=== PATIENT | male | born 1980 | race Hispanic/Latino ===

== ENCOUNTER 2024-05-14 14:09 | Emergency (ER) | payer SELFPAY ==
[2024-05-14] MEDS ORDERED: NA CHLORIDE 0.9% 2,000 ML ONE (14:13)
[2024-05-14] MEDS ORDERED: ONDANSETRON 4 MG/2 ML VIAL ONE (14:29)
[2024-05-14] MEDS ORDERED: NA CHLORIDE 0.9% 50 ML ONE (14:29)
[2024-05-14] MEDS ORDERED: METOCLOPRAMIDE 10 MG/2mL INJ ONE (14:29)
[2024-05-14 14:31] LABS: Absolute Basophils 0.1 K/uL (0-0.5); Absolute Eosinophils 0.2 K/uL (0-0.5); Absolute Lymphocytes (CBC) 4.6 K/uL (0.7-4.9); Absolute Neutrophil 5.6 K/uL (1.8-8.0); Eosinophils % 1.9 % (0-4.4); Hematocrit 46.4 % (39.6-49.0); Hemoglobin 15.6 g/dL (13.6-17.9); Lymphocytes % 39.9 % (15.3-44.8); MCH 29.5 pg (27.0-35.0); MCHC 33.5 g/dL (32.0-36.0); Monocytes % 8.8 % (3.3-12.3); Neutrophils % 48.4 % (41.7-73.7); Platelets 306 thou/uL (152-406); RBC Red Blood Cell Count 5.27 M/uL (4.33-5.43); Red Cell Distribution Width 13.1 % (12.1-15.2)
[2024-05-14 14:42] LABS: Protime INR 1.07
[2024-05-14 14:58] LABS: ALT/SGPT 27 U/L (16-61); AST/SGOT 14 U/L (15-37); Albumin 3.8 g/dL (3.4-5.0); Albumin/Globulin Ratio 0.9 (1.1-1.8); Alkaline Phosphatase 125 U/L (45-117); Anion Gap 12.9 mEq/L (5.0-15.0); BUN Blood Urea Nitrogen 18 mg/dL (7-18); Bicarbonate 20 mEq/L (21-32); Bilirubin Direct 0.2 mg/dL (0-0.2); Bilirubin Indirect, Calculated 0.5 mg/dL (0.2-0.8); Bilirubin Total 0.7 mg/dL (0.2-1.0); Globulin 4.4 g/dL (2.3-3.5); Glomerular Filtration Rate 54 ml/min (=/>90); Glucose Level 127 mg/dL (74-106); Potassium 2.9 mEq/L (3.5-5.1); Protein, Total 8.2 g/dL (6.4-8.2); Sodium Level 136 mEq/L (136-145)
[2024-05-14] MEDS ORDERED: POTASSIUM 25 MEQ EFFERV TAB ONE (16:02)
[2024-05-14 16:28] LABS: Specific Gravity 1.029 (1.005-1.030); Sqamous Epithelial <5 /HPF (None Seen); Urine Bacteria <20 /HPF (<20); Urine Bilirubin NEGATIVE (Negative); Urine Blood Trace (Negative); Urine Clarity Extremely Turbid (Clear); Urine Color Yellow (Yellow); Urine Crystals Unidentified Few /HPF (None Seen); Urine Culture Reflex Order NOT NEEDED; Urine Glucose NEGATIVE (Negative); Urine Ketones NEGATIVE (Negative); Urine Microscopic Reflex YN ORDER UMIC; Urine Mucus 4+ /HPF (None Seen); Urine Nitrite NEGATIVE (Negative); Urine Protein 2+ (Negative); Urine Urobilinogen 1+ (Normal); Urine WBC Clump Rare /HPF (None Seen); Urine Yeast (Budding) Occasional /HPF (None Seen); Urine pH 5.5 (5.0-7.0)
[2024-05-14 16:36] LABS: Barbiturates NEGATIVE (NEGATIVE); Benzodiazepines NEGATIVE (NEGATIVE); Cocaine NEGATIVE (NEGATIVE); METHAMPHETAM NEGATIVE (NEGATIVE); Methadone NEGATIVE (NEGATIVE); Opiates NEGATIVE (NEGATIVE); Phencyclidine NEGATIVE (NEGATIVE); THC Cannibis NEGATIVE (NEGATIVE)
--- NOTE | 2024-05-14 18:24 | ER ---
Nurse's Notes [facility] Name: Agus Medina Age: 44 yrs Sex: Male : 1980 Arrival Date: 05/14/2024 Time: 14:09 Bed 17 Private MD: Diagnosis: Syncope Near-from tree trimming - 5 ft Presentation: 05/14 14:21 Chief complaint: PRESENTING TO THE ER FOR SYNCOPE EPISODE. PT ALSO HAD SYNCOPAL EPISODE cm10 IN ROUTE. PT HYPOTENSIVE UPON ARRIVAL AND COOL AND CLAMMY. PT AWAKES WHEN SPOKEN TO. Coronavirus screen: Client denies travel out of the [place] in the last 14 days. Ebola Screen: Patient denies travel to an Ebola-affected area in the 21 days before illness onset. Initial Sepsis Screen: Does the patient meet any 2 criteria? Mean Arterial Pressure (MAP) < 65. Does the patient have a suspected source of infection? No. Patient's initial sepsis screen is negative. Risk Assessment: Do you want to hurt yourself or someone else? Patient reports no desire to harm self or others. Onset of symptoms was May 14, 2024. 14:21 Method Of Arrival: Wheelchair cm10 14:21 Acuity: [place] 2 cm10 Historical: - Allergies: 14:22 No Known Allergies; cm10 - Home Meds: 14:22 Hydroxyzine Oral [Active]; Zoloft Oral [Active]; cm10 - PMHx: 14:22 Depressive disorder; cm10 - Immunization history:: Adult Immunizations up to date. - Infectious Disease History:: Denies. - Social history:: Smoking status: Patient denies any tobacco usage or history of. Screenin:32 [facility] ED Fall Risk Assessment (Adult) History of falling in the last 3 months, db including since admission Yes- single mechanical fall (1 pt) Confusion or Disorientation No (0 pts) Intoxicated or Sedated No (0 pts) Impaired Gait No (0 pts) Mobility Assist Device Used No (0 pt) Altered Elimination No (0 pt) Score/Fall Risk Level 0 - 2 = Low Risk Oriented to surroundings, Maintained a safe environment. Abuse screen: Denies threats or abuse. Denies injuries from another. Nutritional screening: No deficits noted. Tuberculosis screening: No symptoms or risk factors identified. Assessment: 14:15 Reassessment: Patient appears in no apparent distress at this time. Patient and/or db family updated on plan of care and expected duration. Pain level reassessed. Patient is alert, oriented x 3, equal unlabored respirations, skin warm/dry/pink. General: Appears in no apparent distress. comfortable, Behavior is calm, cooperative. Pain: Denies pain. Neuro: Level of Consciousness is awake, obeys commands, Oriented to person, place, time, situation. Cardiovascular: Rhythm is sinus rhythm. Respiratory: Airway is patent Respiratory effort is even, unlabored, Respiratory pattern is regular, symmetrical. 15:15 Reassessment: NOTIFIED DR. FORBES PATIENT BP 90/55. PT STATES FEELS BETTER. db 16:11 Reassessment: Patient appears in no apparent distress at this time. Patient and/or db family updated on plan of care and expected duration. Pain level reassessed. Patient is alert, oriented x 3, equal unlabored respirations, skin warm/dry/pink. PATIENT ASSISTED WITH URINAL. URINE SPECIMEN COLLECTED. 17:27 Reassessment: Patient appears in no apparent distress at this time. Patient and/or db family updated on plan of care and expected duration. Pain level reassessed. Patient is alert, oriented x 3, equal unlabored respirations, skin warm/dry/pink. 18:03 Reassessment: PATIENT AMBULATORY IN THE HALLWAY PER PROVIDER. GATE STEADY IN NAD. db DENIES DIZZINESS. 18:52 Reassessment: Patient appears in no apparent distress at this time. Patient and/or db family updated on plan of care and expected duration. Pain level reassessed. Patient is alert, oriented x 3, equal unlabored respirations, skin warm/dry/pink. Patient states feeling better. Patient states symptoms have improved. Vital Signs: 14:15 BP 104 / 77; Pulse 70; Resp 16; Pulse Ox 97% on R/A; db 14:21 BP 80 / 62; Pulse 77; Resp 18; Temp 98.6(O); Pulse Ox 97% on R/A; Weight 111.13 kg; cm10 Height 5 ft. 9 in. ; Pain 0/10; 14:45 BP 91 / 60; Pulse 75; Resp 16; Pulse Ox 95% on R/A; db 15:15 BP 90 / 55; Pulse 79; Resp 18; Pulse Ox 92% on R/A; db 15:45 BP 90 / 62; Pulse 68; Resp 16; Pulse Ox 95% ; db 16:15 BP 95 / 66; Pulse 71; Resp 18; Pulse Ox 96% on R/A; db 17:00 BP 98 / 66; Pulse 69; Resp 19; Pulse Ox 95% on R/A; db 17:30 BP 9 / 49; Pulse 68; Resp 16; Pulse Ox 94% ; db 18:00 BP 98 / 64; Pulse 66; Resp 18; Pulse Ox 95% on R/A; db 18:30 BP 100 / 68; Pulse 67; Resp 18; Pulse Ox 95% on R/A; db 14:21 Body Mass Index 36.18 (111.13 kg, 175.26 cm) cm10 14:21 Pain Scale: Adult cm10 Breezy Coma Score: 18:08 Eye Response: spontaneous(4). Motor Response: obeys commands(6). Verbal Response: bo1 oriented(5). Total: 15. ED Course: 14:12 Patient arrived in ED. im 14:19 Kassandra Vega, RN is Primary Nurse. db 14:20 EKG done, by ED staff. tm3 14:22 Triage completed. cm10 14:24 Arm band placed on right wrist. Patient placed in an exam room, on a stretcher, on cm10 security monitor, on pulse oximetry. EKG completed in triage. Results shown to MD. 14:25 Initial lab(s) drawn, by me, held in ED. Inserted saline lock: 18 gauge in right cm10 antecubital area, using aseptic technique. Blood collected. Flushed with 10 mL NS. 14:27 Darius Forbes MD is Attending Physician. bo1 16:24 Urine collected: clean catch specimen. db 18:52 No provider procedures requiring assistance completed. IV discontinued, intact, db bleeding controlled, No redness/swelling at site. 18:52 Patient has correct armband on for positive identification. Bed in low position. Call db light in reach. Side rails up X 1. Provided Education on: DISCHARGE AND FOLLOWUP. Client placed on continuous cardiac and pulse oximetry monitoring. NIBP monitoring applied. security monitor on. Pulse ox on. NIBP on. Warm blanket given. Pillow given. Administered Medications: 14:26 Drug: NS 0.9% IV 1000 ml IV at 1000 ml once; to be given as a bolus over 60 minutes cm10 Route: IV; Rate: 1000 ml; Site: right antecubital; 18:54 Follow up: Response: No adverse reaction; IV Status: Completed infusion; IV Intake: db 1000ml 14:26 Drug: NS 0.9% IV 1000 ml IV at 1 bolus Per protocol; to be given as a bolus over 60 cm10 minutes Route: IV; Rate: 1 bolus; Site: right antecubital; 15:34 Follow up: Response: No adverse reaction; IV Status: Completed infusion; IV Intake: db 1000ml 14:30 Drug: Ondansetron IVP 8 mg IVP once; over 2 minutes Route: IVP; Site: right antecubital;db 15:34 Follow up: Response: No adverse reaction db 14:30 Drug: metoCLOPramide IVP 20 mg IVP once; over 15 mins Route: IVP; Site: right db antecubital; 15:34 Follow up: Response: No adverse reaction db 15:58 Drug: Potassium Chloride PO Liquid 40 mEq PO once Route: PO; db 18:54 Follow up: Response: No adverse reaction db Medication: 18:52 VIS not applicable for this client. db Point of Care Testing: Blood Glucose: 14:24 Blood Glucose: 134 mg/dL; cm10 Ranges: Intake: 15:34 IV: 1000ml; Total: 1000ml. db 18:54 IV: 1000ml; Total: 2000ml. db Outcome: 18:24 Discharge ordered by bo1 18:52 Discharged to home ambulatory, with family, db 18:52 Condition: stable 18:52 Discharge instructions given to patient, family, Instructed on discharge instructions, follow up and referral plans. 18:55 Patient left the ED. db Signatures: Cabrera Holbrook tm3 Kassandra Vega RN RN db Cathy Breaux Clarissa, RN RN cm10 Darius Forbes MD MD bo1 Corrections: (The following items were deleted from the chart) 18:04 18:03 Reassessment: PATIENT AMBULATORY IN THE HALLWAY PER PROVIDER. GATE STEADY IN NAD. db db
--- NOTE | 2024-05-14 18:24 | EDPHYS ---
Physician Documentation [facility] Name: Agus Medina Age: 44 yrs Sex: Male : 1980 Arrival Date: 05/14/2024 Time: 14:09 Bed 17 Private MD: ED Physician Darius Forbes HPI: 05/14 18:04 This 44 yrs old Male presents to ER via Wheelchair with complaints of Syncope. bo1 18:04 The patient has experienced syncope, Pt fainted about 5 ft off the ground while bo1 trimming a tree with family. Onset: The symptoms/episode began/occurred suddenly, just prior to arrival. Duration: This was a single episode, that is still ongoing, Pt is feeling weak, hyperventilating and feeling cold and clammy. Context: the episode(s) was witnessed, by family. Associated injury: The patient did not suffer any apparent associated injury. Associated signs and symptoms: Pertinent positives: diaphoresis, dizziness. Current symptoms: Weakness and sweating. No prior Hx or event. No LOC. 18:08 Recent increase in his Zoloft dosage. bo1 Historical: - Allergies: 14:22 No Known Allergies; cm10 - Home Meds: 14:22 Hydroxyzine Oral [Active]; Zoloft Oral [Active]; cm10 - PMHx: 14:22 Depressive disorder; cm10 - Immunization history:: Adult Immunizations up to date. - Infectious Disease History:: Denies. - Social history:: Smoking status: Patient denies any tobacco usage or history of. ROS: 18:06 Constitutional: Negative for fever, chills, and weight loss bo1 18:06 Constitutional: Positive for Weakness - generalized with hyperventilation, 18:06 Eyes: Negative for acute changes, 18:06 Cardiovascular: Negative for chest pain, 18:06 Respiratory: Positive for Breathing fast, 18:06 Abdomen/GI: Positive for nausea, 18:06 MS/extremity: Negative for acute changes, pain, swelling, 18:06 Skin: Positive for diaphoresis, "cold and clammy", 18:06 Neuro: Positive for dizziness, Negative for altered mental status, 18:06 All other systems are negative, Exam: 18:08 Constitutional: This is a well developed, well nourished patient who is awake, alert, bo1 and in acute distress. 18:08 Constitutional: The patient appears alert, awake, diaphoretic, uncomfortable, Cold to the touch 18:08 Head/face: Exam is negative for acute changes, 18:08 Eyes: Exam is negative for acute changes, 18:08 Neck: Exam negative for External neck: is normal, no acute changes, 18:08 Chest/axilla: Exam negative for acute changes, 18:08 Cardiovascular: Rate: normal, Rhythm: regular, Pulses: no pulse deficits are appreciated, 18:08 ECG was reviewed by the Attending Physician. 18:08 Respiratory: Exam negative for acute changes, mild respiratory distress is noted, Respirations: shallow respirations, tachypnea, 18:08 Abdomen/GI: Inspection: abdomen appears normal, obese Bowel sounds: normal, Palpation: soft, nontender, 18:08 Musculoskeletal/extremity: Extremities: all appear grossly normal, with no appreciated pain with palpation, 18:08 Skin: no rash present. Diaphoretic and cool. Vital Signs: 14:15 BP 104 / 77; Pulse 70; Resp 16; Pulse Ox 97% on R/A; db 14:21 BP 80 / 62; Pulse 77; Resp 18; Temp 98.6(O); Pulse Ox 97% on R/A; Weight 111.13 kg; cm10 Height 5 ft. 9 in. ; Pain 0/10; 14:45 BP 91 / 60; Pulse 75; Resp 16; Pulse Ox 95% on R/A; db 15:15 BP 90 / 55; Pulse 79; Resp 18; Pulse Ox 92% on R/A; db 15:45 BP 90 / 62; Pulse 68; Resp 16; Pulse Ox 95% ; db 16:15 BP 95 / 66; Pulse 71; Resp 18; Pulse Ox 96% on R/A; db 17:00 BP 98 / 66; Pulse 69; Resp 19; Pulse Ox 95% on R/A; db 17:30 BP 9 / 49; Pulse 68; Resp 16; Pulse Ox 94% ; db 18:00 BP 98 / 64; Pulse 66; Resp 18; Pulse Ox 95% on R/A; db 18:30 BP 100 / 68; Pulse 67; Resp 18; Pulse Ox 95% on R/A; db 14:21 Body Mass Index 36.18 (111.13 kg, 175.26 cm) cm10 14:21 Pain Scale: Adult cm10 Breezy Coma Score: 18:08 Eye Response: spontaneous(4). Motor Response: obeys commands(6). Verbal Response: bo1 oriented(5). Total: 15. MDM: 14:28 Medical Screening Exam initiated bo1 18:17 Differential Diagnosis: emotional response, idiopathic syncope, vasovagal episode. Data bo1 reviewed: vital signs, lab test result(s), EKG. Medication response: Reglan and IVF. Response to treatment: the patient's symptoms have markedly improved after treatment, the patient is now symptom free, Post fluids pt is able to walk and ambulate w/o dizziness, now much improved. ED course: Pt is improved post care and treatment in the ER. Pt did come by POV and family here. 05/14 14:19 Order name: Acetaminophen; Complete Time: 15:27 db 05/14 14:19 Order name: Basic Metabolic Panel; Complete Time: 15:27 db 05/14 14:19 Order name: CBC with Diff; Complete Time: 15:27 db 05/14 14:19 Order name: ETOH Level; Complete Time: 15:27 db 05/14 14:19 Order name: Hepatic Function; Complete Time: 15:27 db 05/14 14:19 Order name: PT-INR; Complete Time: 15:27 db 05/14 14:19 Order name: Ptt, Activated; Complete Time: 15:27 db 05/14 14:19 Order name: Salicylate; Complete Time: 15:27 db 15 14:19 Order name: Urine Drug Screen; Complete Time: 16:39 db 05/14 14:35 Order name: Glucose, Ancillary Testing; Complete Time: 15:27 EDMS 05/14 14:37 Order name: Glucose, Ancillary Testing EDMS 05/14 16:13 Order name: Urinalysis w/ reflexes; Complete Time: 16:39 db 05/14 14:19 Order name: EKG - Nurse/Tech; Complete Time: 14:19 db 05/14 14:19 Order name: IV Saline Lock; Complete Time: 14:19 db 05/14 14:19 Order name: Labs collected and sent; Complete Time: 14:49 db 05/14 14:19 Order name: Suicide Screening ([place]); Complete Time: 14:19 db EC:08 Rate is 74 beats/min. Rhythm is regular. QRS [place] is Normal. [place] interval is normal. QRS bo1 interval is normal. QT interval is normal. No Q waves. T waves are Normal. No ST changes noted. Clinical impression: Normal ECG. Interpreted by me. Reviewed by me. Administered Medications: 14:26 Drug: NS 0.9% IV 1000 ml IV at 1000 ml once; to be given as a bolus over 60 minutes cm10 Route: IV; Rate: 1000 ml; Site: right antecubital; 18:54 Follow up: Response: No adverse reaction; IV Status: Completed infusion; IV Intake: db 1000ml 14:26 Drug: NS 0.9% IV 1000 ml IV at 1 bolus Per protocol; to be given as a bolus over 60 cm10 minutes Route: IV; Rate: 1 bolus; Site: right antecubital; 15:34 Follow up: Response: No adverse reaction; IV Status: Completed infusion; IV Intake: db 1000ml 14:30 Drug: Ondansetron IVP 8 mg IVP once; over 2 minutes Route: IVP; Site: right antecubital;db 15:34 Follow up: Response: No adverse reaction db 14:30 Drug: metoCLOPramide IVP 20 mg IVP once; over 15 mins Route: IVP; Site: right db antecubital; 15:34 Follow up: Response: No adverse reaction db 15:58 Drug: Potassium Chloride PO Liquid 40 mEq PO once Route: PO; db 18:54 Follow up: Response: No adverse reaction db Point of Care Testing: Blood Glucose: 14:24 Blood Glucose: 134 mg/dL; cm10 Ranges: Critical Glucose Levels:Adult <50 mg/dl or >400 mg/dl <40 mg/dl or >180 mg/dl Disposition Summary: 05/14/24 18:24 Discharge Ordered Notes: Location: Home bo1 Problem: new bo1 Symptoms: have improved bo1 Condition: Stable bo1 Diagnosis - Syncope Near - from tree trimming - 5 ft bo1 Followup: bo1 - With: Private Physician - When: Upon discharge from the Emergency Department - Reason: Recheck today's complaints, Continuance of care Discharge Instructions: - Discharge Summary Sheet bo1 - Syncope bo1 Forms: - Medication Reconciliation Form bo1 - Antibiotic Education bo1 - Prescription Opioid Use bo1 - Patient Portal Instructions bo1 - Leadership Thank You Letter bo1 Signatures: Dispatcher [employer] EDMS Kassandra Vega, RN RN db Monik Thorne RN RN cm10 Oei, MD SHITAL Mccoy bo1 Corrections: (The following items were deleted from the chart) 14:20 14:19 ACETAMINOPHEN+C.LAB.BRZ ordered. EDMS EDMS 14:20 14:19 BASIC METABOLIC PANEL+C.LAB.BRZ ordered. EDMS EDMS 14:20 14:19 CBC+H.LAB.BRZ ordered. EDMS EDMS 14:20 14:20 ETHANOL+C.LAB.BRZ ordered. EDMS EDMS 14:20 14:20 HEPATIC FUNCTION+C.LAB.BRZ ordered. EDMS EDMS 14:20 14:20 PROTIME (+INR)+COAG.LAB.BRZ ordered. EDMS EDMS 14:20 14:20 PTT, ACTIVATED+COAG.LAB.BRZ ordered. EDMS EDMS 14:20 14:20 SALICYLATE+C.LAB.BRZ ordered. EDMS EDMS 14:20 14:20 URINE DRUG SCREEN+UC.LAB.BRZ ordered. EDMS EDMS
[2024-05-14 20:14] VITALS: TEMP 98.6
[2024-05-14 20:22] VITALS: O2SAT 95
[2024-05-14 20:23] VITALS: BP 100/68
--- NOTE | 2024-05-16 12:03 | EKG ---
Test Date: 2024-05-14 Test Time: 14:17:47 Instructional Technology Coach: TM MEASUREMENT RESULTS: Intervals: Rate: 74 ME: 146 QRSD: 100 QT: 378 QTc: 419 [place]: P: 55 ME: 146 QRS: 66 T: 72 INTERPRETIVE STATEMENTS: Normal sinus rhythm Normal ECG No previous ECG available for comparison Electronically Signed On 05-16-24 12:01:54 REMOTE INPATIENT CODER by Lamine López
== END 2024-05-14 18:55 | disposition home or self-care (01) ==
LOC: ER 14:09
DX: R55 Syncope and collapse (principal)
CPT/HCPCS: 36415; 80048; 80076; 80143; 80179; 80307; 81001; 82077; 82947; 85025; 85610; 85730; 93005; 96361; 96374; 96375; 99285; J2405; J2765; J7030